=== PATIENT | female | born 1990 | race Caucasian/White ===

== ENCOUNTER 2017-06-11 17:51 | Emergency (ER) | payer BC, OTHER ==
--- NOTE | 2017-06-11 18:14 | EDM.PDOC ---
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 Her CP subsided PT> Her gandpa with 55 on an NV, Mom has elevated cholesterol and DAD has HTN. Pt denied júnior other acute medical issue at this time. BP 119/67 pulse 67 Temp 36.2 Puls ox 100% on RA. Pt stated her nl SBP is 95 Onset: Today Onset Date: 06/11/17 Onset Time: 10:00 Duration: Hour(s): Location: Reports: Chest Quality: Reports: Ache, Burning Severity: Mild Improves with: Reports: None Worsens with: Reports: None Context: Reports: Other (at rest) - Related Data Allergies Allergy/AdvReac Type Severity Reaction Status Date / Time No Known Allergies Allergy Verified 06/11/17 18:28 Home Meds: Home Meds NK [No Known Home Meds] 06/11/17 [History] ED ROS GENERAL - Review of Systems Review Of Systems: See Below Constitutional: Reports: No Symptoms HEENT: Reports: No Symptoms Respiratory: Reports: No Symptoms Cardiovascular: Reports: Chest Pain (subsided [employer]) Endocrine: Reports: No Symptoms GI/Abdominal: Reports: No Symptoms : Reports: No Symptoms Musculoskeletal: Reports: No Symptoms Skin: Reports: No Symptoms Neurological: Reports: No Symptoms Psychiatric: Reports: No Symptoms Hematologic/Lymphatic: Reports: No Symptoms Immunologic: Reports: No Symptoms ED EXAM, GENERAL - Physical Exam Exam: See Below Exam Limited By: No Limitations General Appearance: Alert, WD/WN, No Apparent Distress Eye Exam: Bilateral Eye: Normal Inspection Ears: Normal External Exam Ear Exam: Bilateral Ear: Auricle Normal Nose: Normal Inspection, Normal Mucosa, No Blood Throat/Mouth: Normal Inspection, Normal Lips Head: Atraumatic, Normocephalic Neck: Normal Inspection, Supple, Non-Tender Respiratory/Chest: No Respiratory Distress, Lungs Clear, Normal Breath Sounds, No Accessory Muscle Use, Chest Non-Tender Cardiovascular: Normal Peripheral Pulses, Regular Rate, Rhythm, No Edema, No Gallop, No JVD, No Murmur, No Rub Peripheral Pulses: 1+: Femoral (L), Femoral (R) GI/Abdominal: Normal Bowel Sounds, Soft, Non-Tender, No Organomegaly (Female) Exam: Deferred Rectal (Female) Exam: Deferred Back Exam: Normal Inspection, Full Range of Motion Extremities: Normal Inspection, Normal Range of Motion, Non-Tender Neurological: Alert, Oriented, CN II-XII Intact, Normal Cognition, Normal Gait, No Motor/Sensory Deficits Psychiatric: Normal Affect, Normal Mood Skin Exam: Warm, Dry, Intact, Normal Color, No Rash Lymphatic: No Adenopathy EKG INTERPRETATION EKG Date: 06/11/17 Time: 17:55 Rhythm: NSR Rate (Beats/Min): 59 Railroad: Normal P-Wave: Present QRS: Normal ST-T: Normal QT: Normal Comparison: NA - No Prior EKG Course - Vital Signs Text/Narrative:: 27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 Her CP subsided PT> Her gandpa with 55 on an NV, Mom has elevated cholesterol and DAD has HTN. Pt denied júnior other acute medical issue at this time. BP 119/67 pulse 67 Temp 36.2 Puls ox 100% on RA. Pt stated her nl SBP is 95 PE: WNWD WF NAD, no CP Labs and CXR were not indicated Impression: atypical CP Reexam: Pt remained pain free while here in the ED Plan: D/C with instructions Last Recorded V/S: Last Vital Signs Temp 36.4 C 06/11/17 17:51 Pulse 52 L 06/11/17 18:20 Resp 18 06/11/17 18:20 BP 107/60 06/11/17 18:20 Pulse Ox 100 06/11/17 18:20 Departure - Departure Time of Disposition: 18:15 Disposition: Home, Self-Care 01 Condition: Good Clinical Impression: Atypical chest pain Instructions: Nonspecific Chest Pain Referrals: Sylvester August MD [Primary Care Provider] - Forms: ED Department Discharge Additional Instructions: Please take motrin ( with food) for pain. Please f/u, please come back if your symptoms get worse acutely.
[2017-06-11 21:19] VITALS: BP 107/60
== END 2017-06-11 18:40 | disposition home or self-care (01) ==
LOC: FB.ED 17:51
DX: R07.89 Other chest pain (principal)
CPT/HCPCS: 99284